=== PATIENT | male | born 1965 | race Caucasian/White ===

== ENCOUNTER 2021-03-06 10:30 | Inpatient (IN) | payer OTHER, SELFPAY ==
[2021-03-06] VITALS (10 sets, daily range): BP systolic 101–111; BP diastolic 59–72; PULSE 80–101; RESP 15–24; TEMP 36.8–38.3; O2SAT 89–94; BMI 25.1
--- NOTE | ~2021-03-06 | CT_ITS ---
EXAMINATION: CT ANGIOGRAM OF THE CHEST WITH AND WITHOUT CONTRAST (CT PULMONARY ANGIOGRAM FOR PE) CLINICAL INFORMATION: Reason for Exam shortness of breath, positive D-dimer rule out PE. COMPARISON: Chest x-ray of same day TECHNIQUE: Prior to contrast administration, noncontrast localization images were obtained. Subsequently, multidetector volumetric imaging was performed from the thoracic inlet to below the diaphragms following the administration of 71 mL Omnipaque 350 intravenous contrast. No contrast reaction reported Sagittal, coronal, and MIP oblique sagittal reformatted images were obtained on the CT workstation, uploaded to PACS, and reviewed. This CT examination was performed using dose optimization techniques as appropriate, variously including the following: *Automated exposure control *Adjustment of mA and/or kV according to patient size (this includes techniques or standardized protocols for targeted exams where dose is matched to indication/reason for exam; i.e. extremities or head) *Use of iterative reconstruction technique Total exam dose-length product 534 mGy-cm FINDINGS: QUALITY OF STUDY/CONTRAST BOLUS: Suboptimal. PULMONARY ARTERIES: No definite central or upper two third order branching acute pulmonary artery emboli seen. THORACIC AORTA: No aneurysm or dissection. LUNG: No suspicious lung nodules identified. There is diffuse groundglass opacity seen as well as some regions of airspace disease consistent with Covid/viral pneumonitis. Central airways are patent. Bronchial wall thickening is seen throughout. There appears to be some mild bronchiectasis present within the right lower lobe. PLEURA: No pleural effusion appreciated. No pneumothorax. MEDIASTINUM: Thyroid gland appears unremarkable. Heart normal size. No pericardial effusion. There is mediastinal and hilar lymphadenopathy, right greater than left. No evidence of septal bowing or right heart strain. CHEST WALL/AXILLA: No axillary or internal mammary lymphadenopathy. OSSEOUS STRUCTURES: No acute or suspicious osseous abnormality. UPPER ABDOMEN: Unremarkable. No reflux of contrast into the hepatic veins to suggest elevated right heart pressures. CT/CT angio chest PE protocol IMPRESSION: Diffuse interstitial airspace disease consistent with viral pneumonitis. No evidence of acute pulmonary artery embolus. No evidence of thoracic aortic aneurysm or dissection. VTE: negative
--- NOTE | ~2021-03-06 | XR_ITS ---
EXAMINATION: XR CHEST CLINICAL INFORMATION: Shortness of breath COMPARISON: None TECHNIQUE: AP portable view of the chest was obtained. FINDINGS: There are bilateral regions of ill-defined groundglass opacity. Heart normal size. No evidence of pulmonary edema. No pneumothorax or significant pleural effusion. XR/XR chest 1V IMPRESSION: Scattered bilateral regions of interstitial lung disease which may be infectious or inflammatory in nature.
--- NOTE | 2021-03-06 11:43 | ECG_ITS ---
Test Reason : SOB Blood Pressure : / mmHG Vent. Rate : 095 BPM Atrial Rate : 095 BPM P-R Int : 144 ms QRS Dur : 088 ms QT Int : 354 ms P-R-T Axes : 050 030 018 degrees QTc Int : 444 ms Normal sinus rhythm Normal ECG No previous ECGs available Referred By: Martin Marques Electronically Signed By:ANOOP COYLE MD
[2021-03-06 12:17] LABS: Basophils Percent Auto 0.2 % (0-2); Hematocrit 40.6 % (42.0-52.0); Hemoglobin 14.3 g/dl (14.0-18.0); Imm Gran Abs Auto 0.01 X10*3/uL (0.00-0.03); Imm Gran Pct Auto 0.2 % (0.0-0.4); Lymphocytes Absolute Auto 0.7 X10*3/uL (1.2-4.9); Lymphocytes Percent Auto 13.6 % (20-40); MANUAL DIFF FLAG SCAN; Mean Corpuscular HGB Conc 35.2 g/dl (31.0-36.0); Mean Corpuscular Hemoglobin 31.8 pg (27.0-33.0); Mean Corpuscular Volume 90.4 fL (80.0-98.0); Mean Platelet Volume 9.6 fL (9.4-12.4); Monocytes Absolute Auto 0.2 X10*3/uL (0.1-1.2); Monocytes Percent Auto 4.2 % (2-11); Neutrophils Absolute Auto 4.5 x10*3/uL (2.0-8.3); Neutrophils Percent Auto 81.8 % (45-73); Platelet Count 272 X10*3/uL (160-400); Red Blood Count 4.49 X10*6/uL (4.60-5.80); Red Cell Distribution Width 12.3 % (11.0-16.0); SCAN SMEAR FLAG 1; White Blood Count 5.5 X10*3/uL (4.8-10.8)
--- NOTE | 2021-03-06 12:28 | ED.SOB ---
HPI - SOB/Dyspnea General Chief Complaint: Dyspnea Stated Complaint: low oxygen levels Time Seen by Provider: 03/06/21 11:43 Source: patient Mode of arrival: ambulatory Limitations: no limitations History of Present Illness HPI Narrative: This is a 55-year-old male with no known medical history presenting to the emergency department with upper respiratory symptoms, Malaise, nausea and dyspnea on exertion since , patient tells me has been experiencing these symptoms intermittently since then. Also reports significant weight loss about 15-18 lb over the past few weeks. Tells me that night he is unable to sleep due to extreme chills. He also reports shortness of breath at rest, it is worse with ambulation however he feels as though it is present all the time. Patient tells me that his is currently sick with COVID-19. He is not vaccinated. He tells me he has been taking Advil for his symptoms, with little to no relief. He denies chest pain, pleuritic chest pain, vomiting, abdominal pain, headache, dizziness, weakness. patient is a former smoker however, he is not currently smoking at this time. MD elicited complaint: shortness of breath Onset (ago): day(s) (12) Timing: constant Severity: severe Exacerbating factors: movement Relieving factors: rest Associated symptoms: fever and diaphoresis Treatment prior to arrival: none Related Data Allergies Allergy/AdvReac Type Severity Reaction Status Date / Time No Known Allergies Allergy Verified 03/06/21 11:19 Review of Systems Review of Systems: Constitutional : + Weight loss, + Fever, + Chills, + Fatigue, + Malaise ENT/Mouth : No sore throat, No Rhinorrhea Eyes: No Eye Pain, No Swelling, No Redness Cardiovascular : No Chest Pain, + SOB, + Dyspnea on Exertion, No Orthopnea, No Edema, No Palpitations Respiratory : No Cough, No Sputum, No Wheezing Gastrointestinal : No Nausea, No Vomiting, No Diarrhea, No Constipation, No abdominal Pain, No Hematochezia, No Melena Genitourinary : No Dysuria, No Urinary Frequency, No Hematuria, Musculoskeletal : No joint pain, + Myalgias, No Joint Swelling Skin : No Skin Lesions, No rash Neuro : No Weakness, No Numbness, No Dizziness, No Headache Psych : No Anxiety/Panic, No Depression All other systems reviewed and are negative Yes all other systems are reviewed and are negative [facility] Past Medical History Attestation statement: The following information was validated with the patient. Source: old records reviewed and nursing notes reviewed Social History Social History Patient Tobacco Use Status: Former Tobacco user Smoked in Last 30 Days: No Use of substances other than those prescribed or required for medical reasons: No Advance Directives: No Physical Exam Vital Signs: Vital Signs: Last Vital Signs Temp 100.9 F H 03/06/21 15:56 Pulse 101 H 03/06/21 15:56 Resp 24 H 03/06/21 15:56 BP 103/59 L 03/06/21 15:56 Pulse Ox 89 L 03/06/21 16:03 BMI result Body Mass Index 25.1 VSS Appearance: Alert.? Oriented X3.? No acute distress.? Head: Normocephalic, atraumatic, no step-offs or deformities Eyes: Pupils equal, round and reactive to light.? ENT: Pharynx normal.? Neck: Normal inspection.? Neck supple.? CVS: Normal heart rate and rhythm.? Pulses normal.? Respiratory: No respiratory distress.? Breath sounds normal.? Abdomen: Soft and nontender.? Skin: Skin warm and dry.? Normal skin color.? Normal skin turgor.? Extremities: No lower extremity edema.? No calf ttp. 5/5 strength to bilateral upper and lower extremities Back: No midline tenderness, no C-spine tenderness, full range of motion, no CVA tenderness bilaterally Neuro: Oriented X 3.? No motor deficit.? No sensory deficit. Course Reevaluation(s) Reevaluation #1: O2 88% RA after ambulation. Complaining of SOB. Time: 15:44 Reevaluation #2: Patient now 88% resting in the stretcher, will put on 2L. Blood cultures and lactic will be ordered. Patient given tylenol he is now febrile. Infection suspected. Cultures and a lactic will be ordered at this time as well as atbx and fluids. Time: 16:35 Reevaluation #3: Dr. Castellon will admit patient Time: 16:36 MDM - SOB/Dyspnea MDM Narrative Medical decision making narrative: 1233 55 yo m no pmhx presents with COVID like sx X12 days, he also reports a/c malise, nausea, chills, and 15-18 lbs weight loos. Patient is not vaccinated. Physical examination benign, patient saturating 92% on room air. Will put patient on 2 L via nasal cannula. Plan at this time is to obtain basic labs, troponin, UA, chest x-ray, continuous cardiac monitoring. I will do an ambulatory O2 trial on this patient to ensure he did not saturate below 90%. Medical Records Attestation: I reviewed the patient's medical records. Lab Data Attestation: I reviewed the patient's lab results. Result diagrams: 03/06/21 12:04 03/06/21 12:04 Labs: Lab Results 03/06/21 03/06/21 03/06/21 Range/Units 12:04 12:04 12:04 WBC 5.5 (4.8-10.8) X10*3/uL RBC 4.49 L (4.60-5.80) X10*6/uL Hgb 14.3 (14.0-18.0) g/dl Hct 40.6 L (42.0-52.0) % MCV 90.4 (80.0-98.0) fL MCH 31.8 (27.0-33.0) pg MCHC 35.2 (31.0-36.0) g/dl RDW 12.3 (11.0-16.0) % Plt Count 272 (160-400) X10*3/uL MPV 9.6 (9.4-12.4) fL Immature Gran % (Auto) 0.2 (0.0-0.4) % Neut % (Auto) 81.8 H (45-73) % Lymph % (Auto) 13.6 L (20-40) % [place] % (Auto) 4.2 (2-11) % Eos % (Auto) 0.0 (0-4) % Baso % (Auto) 0.2 (0-2) % Lymph # (Auto) 0.7 L (1.2-4.9) X10*3/uL [place] # (Auto) 0.2 (0.1-1.2) X10*3/uL Eos # (Auto) 0.0 (0.0-0.4) X10*3/uL Baso # (Auto) 0.0 (0.0-0.2) X10*3/uL Abs Immat Gran (auto) 0.01 (0.00-0.03) X10*3/uL Absolute Neuts (auto) 4.5 (2.0-8.3) x10*3/uL Absolute Nucleated RBC 0.000 (0.0-0.012) X10*3/uL Nucleated RBC % (auto) 0.0 (0.0-0.2) /100WBC Smear Tech's Comments VERIFIED D-Dimer High Sensitivty NG/ML Sodium 134 L (135-145) mmol/L Potassium 3.7 (3.3-5.1) mmol/L Chloride 100 (96-108) mmol/L Carbon Dioxide 24 (22-29) mmol/L Anion Gap 14 (12-20) BUN 17 H (9-16) mg/dL Creatinine 1.13 (0.5-1.4) mg/dL Estim Creat Clear Calc 94.1 Estimated GFR > 60 Random Glucose 128 H (60-115) mg/dL Calcium 8.1 L (8.4-10.2) mg/dL Magnesium 2.2 (1.6-2.6) mg/dL Total Bilirubin 1.2 H (0.0-1.0) mg/dL AST 66 H (5-37) U/L ALT 85 H (0-40) U/L Alkaline Phosphatase 84 (39-117) U/L Troponin I High Sens 9.3 (<3.5-35.0) ng/L Total Protein 6.2 L (6.5-8.0) g/dL Albumin 3.6 (3.5-5.0) g/dL COVID-19 (FANY) (Negative) COVID-19 Clin Com 03/06/21 03/06/21 Range/Units 12:58 12:58 WBC (4.8-10.8) X10*3/uL RBC (4.60-5.80) X10*6/uL Hgb (14.0-18.0) g/dl Hct (42.0-52.0) % MCV (80.0-98.0) fL MCH (27.0-33.0) pg MCHC (31.0-36.0) g/dl RDW (11.0-16.0) % Plt Count (160-400) X10*3/uL MPV (9.4-12.4) fL Immature Gran % (Auto) (0.0-0.4) % Neut % (Auto) (45-73) % Lymph % (Auto) (20-40) % [place] % (Auto) (2-11) % Eos % (Auto) (0-4) % Baso % (Auto) (0-2) % Lymph # (Auto) (1.2-4.9) X10*3/uL [place] # (Auto) (0.1-1.2) X10*3/uL Eos # (Auto) (0.0-0.4) X10*3/uL Baso # (Auto) (0.0-0.2) X10*3/uL Abs Immat Gran (auto) (0.00-0.03) X10*3/uL Absolute Neuts (auto) (2.0-8.3) x10*3/uL Absolute Nucleated RBC (0.0-0.012) X10*3/uL Nucleated RBC % (auto) (0.0-0.2) /100WBC Smear Tech's Comments D-Dimer High Sensitivty 403 NG/ML Sodium (135-145) mmol/L Potassium (3.3-5.1) mmol/L Chloride (96-108) mmol/L Carbon Dioxide (22-29) mmol/L Anion Gap (12-20) BUN (9-16) mg/dL Creatinine (0.5-1.4) mg/dL Estim Creat Clear Calc Estimated GFR Random Glucose (60-115) mg/dL Calcium (8.4-10.2) mg/dL Magnesium (1.6-2.6) mg/dL Total Bilirubin (0.0-1.0) mg/dL AST (5-37) U/L ALT (0-40) U/L Alkaline Phosphatase (39-117) U/L Troponin I High Sens (<3.5-35.0) ng/L Total Protein (6.5-8.0) g/dL Albumin (3.5-5.0) g/dL COVID-19 (FANY) Positive A (Negative) COVID-19 Clin Com See Note Imaging Data Chest x-ray: Attestation: I personally reviewed and interpreted this imaging study as follows: Radiologist's impression: FINDINGS: There are bilateral regions of ill-defined groundglass opacity. Heart normal size. No evidence of pulmonary edema. No pneumothorax or significant pleural effusion. XR/XR chest 1V IMPRESSION: Scattered bilateral regions of interstitial lung disease which may be infectious or inflammatory in nature. ECG Data Attestation: I personally reviewed and interpreted this ECG as follows: ECG interpretation date: 03/06/21 ECG interpretation time: 12:41 Prior ECG tracings: not available for review Interpretation: Ventricular rate of 95, MA normal, QRS normal, QT/ QTC normal. EKG shows normal sinus rhythm, no ST elevations or inversions. No acute ischemia. No previous EKGs to compare with. Critical Care Time Critical Care Time Critical Care Time: No Discharge Plan Discharge Clinical Impression: COVID-19, Viral pneumonia Patient Disposition: Admitted As Inpatient
[2021-03-06 12:30] LABS: Alanine Aminotransferase 85 U/L (0-40); Albumin Level 3.6 g/dL (3.5-5.0); Alkaline Phosphatase 84 U/L (39-117); Anion Gap 14 (12-20); Aspartate Amino Transferase 66 U/L (5-37); Bilirubin Total 1.2 mg/dL (0.0-1.0); Blood Urea Nitrogen 17 mg/dL (9-16); Calcium 8.1 mg/dL (8.4-10.2); Carbon Dioxide 24 mmol/L (22-29); Chloride 100 mmol/L (96-108); Creatinine Clr Calc Pharmacy 94.1; Estimated Glomerular Filt Rate > 60; Glucose Random 128 mg/dL (60-115); Magnesium 2.2 mg/dL (1.6-2.6); Potassium 3.7 mmol/L (3.3-5.1); Sodium 134 mmol/L (135-145); Total Protein 6.2 g/dL (6.5-8.0)
[2021-03-06 12:37] LABS: Troponin-I High Sensitivity 9.3 ng/L (<3.5-35.0)
[2021-03-06 12:39] LABS: SLIDE REVIEW VERIFIED
[2021-03-06 13:12] LABS: D Dimer High Sensitivity 403 NG/ML
[2021-03-06 13:28] LABS: COVID-19 Test Positive (Negative)
[2021-03-06] MEDS: iohexoL 350 MG/ML 100 ML INFUS..BTL IV (14:04)
[2021-03-06] MEDS: 0.9 % Sodium Chloride 1,000 ML 999 ML IV (15:58)
[2021-03-06] MEDS: Acetaminophen 325 MG TABLET 650 MG PO (16:04)
--- NOTE | 2021-03-06 16:30 | P.HPHOSP_ITS ---
History of Present Illness Date of Service: 03/06/21 Chief Complaint: shortness of breath 55 year old male not vaccinated for covid here with sob and hypoxia. He has been having respiratory sumptoms since gabino and worse today. He is covid + and O2 sat has been as low as 87 on room. CXR shows covid pattern PNA, inflamatory markers are high. Given O2 with improvement. Review of Systems Review of Systems: Gen: no fever Resp: + sob, + cough CV: no chest, no SMITH, no leg edema GI: No n/v, no abd pain Neuro: No confusion Yes all other systems are reviewed and are negative PMFSH Pertinent family history: mother with lupus, heard disease run in family Social History Patient Tobacco Use Status: Former Tobacco user Smoked in Last 30 Days: No Use of substances other than those prescribed or required for medical reasons: No Advance Directives: No Meds Allergies Allergy/AdvReac Type Severity Reaction Status Date / Time No Known Allergies Allergy Verified 03/06/21 11:19 Active Medications: Current Medications Sodium Chloride (Ns) 1,000 mls @ 999 mls/hr IV .Q1H1M TRU Stop: 03/06/21 17:00 Last Admin: 03/06/21 15:58 Dose: 999 mls/hr Documented by: Physical Exam Vital Signs and Narrative: Vital Signs: Last Vital Signs Temp 100.9 F H 03/06/21 15:56 Pulse 101 H 03/06/21 15:56 Resp 24 H 03/06/21 15:56 BP 103/59 L 03/06/21 15:56 Pulse Ox 89 L 03/06/21 16:03 BMI result Body Mass Index 25.1 Const: Other: Constitutional: Alert, in no distress, Mental Status: Oriented to person, place and time. Eyes: normal scleara Respiratory: noirmal respiratory effort, no accessory muiscle use Cardiovascular: S1 S2 regular. No murmurs, rubs or gallops. Gastrointestinal: Abdomen soft, non-tender, non-distended. Normal bowel sounds.? Neurologic: Cranial nerves II-XII grossly intact. No focal neurological deficits. Moves all extremities spontaneously.? Skin: No rashes or lesions.? Musculoskeletal: No cyanosis or clubbing. Psychiatric: Normal mood and affect? Results Labs CBC and Chem 7: 03/06/21 12:04 03/06/21 12:04 Labs: Laboratory Results - last 24 hr 03/06/21 03/06/21 03/06/21 12:04 12:04 12:04 MCV 90.4 MCH 31.8 MCHC 35.2 RDW 12.3 Plt Count 272 MPV 9.6 Immature Gran % (Auto) 0.2 Neut % (Auto) 81.8 H Lymph % (Auto) 13.6 L [place] % (Auto) 4.2 Eos % (Auto) 0.0 Baso % (Auto) 0.2 Lymph # (Auto) 0.7 L [place] # (Auto) 0.2 Eos # (Auto) 0.0 Baso # (Auto) 0.0 Abs Immat Gran (auto) 0.01 Absolute Neuts (auto) 4.5 Absolute Nucleated RBC 0.000 Nucleated RBC % (auto) 0.0 Smear Tech's Comments VERIFIED D-Dimer High Sensitivty Anion Gap 14 Estim Creat Clear Calc 94.1 Estimated GFR > 60 Random Glucose 128 H Calcium 8.1 L Magnesium 2.2 Total Bilirubin 1.2 H AST 66 H ALT 85 H Alkaline Phosphatase 84 Troponin I High Sens 9.3 Total Protein 6.2 L Albumin 3.6 COVID-19 (FANY) COVID-19 Clin Com 03/06/21 03/06/21 12:58 12:58 MCV MCH MCHC RDW Plt Count MPV Immature Gran % (Auto) Neut % (Auto) Lymph % (Auto) [place] % (Auto) Eos % (Auto) Baso % (Auto) Lymph # (Auto) [place] # (Auto) Eos # (Auto) Baso # (Auto) Abs Immat Gran (auto) Absolute Neuts (auto) Absolute Nucleated RBC Nucleated RBC % (auto) Smear Tech's Comments D-Dimer High Sensitivty 403 Anion Gap Estim Creat Clear Calc Estimated GFR Random Glucose Calcium Magnesium Total Bilirubin AST ALT Alkaline Phosphatase Troponin I High Sens Total Protein Albumin COVID-19 (FANY) Positive A COVID-19 Clin Com See Note Imaging Radiologist's Impressions: Impressions Chest X-Ray 03/06/21 12:23 IMPRESSION: Scattered bilateral regions of interstitial lung disease which may be infectious or inflammatory in nature. Chest CTA 03/06/21 14:18 IMPRESSION: Diffuse interstitial airspace disease consistent with viral pneumonitis. No evidence of acute pulmonary artery embolus. No evidence of thoracic aortic aneurysm or dissection. VTE: negative Assessment and Plan (1) COVID-19: Status: Acute (2) Viral pneumonia: Status: Acute 55 year old male not vaccinated for covid here with sob and hypoxia. He has been having respiratory sumptoms since gabino and worse today. He is covid + and O2 sat has been as low as 87 on room. CXR shows covid pattern PNA. Acute hypoxic respiratory failure d/t covid PNA -Out of window for remdesevir since symptoms nearly 2 weeks -Dexamethasone -O2 -Zinc, Pepcid, Vit C--not well validated treatment options, but no potential for harm. Lovenox for DVT prophylaxis. Quality Stroke Does the patient have a stroke diagnosis?: No VTE Prior VTE?: No VTE Risk Level:: Medical - moderate - high VTE Device Contraindication: Treatment Not Indicated VTE Drug Contraindication: Treatment Not Indicated
[2021-03-06 16:39] LABS: Lactate Dehydrogenase 937 U/L (118-273)
[2021-03-06 17:03] LABS: Procalcitonin 0.45 ng/mL
[2021-03-06 17:27] LABS: Lactic Acid 1.2 mmol/L (0.5-2.0)
[2021-03-06] MEDS: dexAMETHasone sod phosphate 10 MG/ML VIAL IVPUSH (17:30)
[2021-03-06] MEDS: cefTRIAXone sodium 1 GM in 0.9 % Sodium Chloride 50 ML IV (17:30)
[2021-03-06] MEDS: Enoxaparin Sodium 40 MG/0.4 ML SYRINGE SUBCUT (17:30)
[2021-03-06 17:35] LABS: Troponin-I High Sensitivity 9.4 ng/L (<3.5-35.0)
[2021-03-06 17:58] LABS: Ferritin 8394 ng/mL (20-250)
[2021-03-06] MEDS: Azithromycin 500 MG in 0.9 % Sodium Chloride 250 ML 125 MG IV (18:03)
--- NOTE | 2021-03-06 18:27 | MHC.CM.PN ---
CM met with admitted patient with bed assignment pending. A&Ox3. No IMM necessary. No HCP. Education provided, pt declines at this time. No PCP. Negative medical hx. Positive Covid with symptoms since 02/22. Pt is employed. Lives with and 13 years old son. has been ill and tested positive for Covid today. Pt states son is not sick. Pt is Not vaccinated. D/C plan is home without services. Pt may need RT evaluation and home oxygen at discharge. Pt will arrange transportation home. CM to follow for d/c needs.
--- NOTE | 2021-03-06 19:44 | PC.NURSE ---
Pt resting on stretcher in NAD, breathing with ease on 3L NC. Pt aaox4, denies pain/discomfort, offers no complaints/concerns. Pt VSS, awaiting bed placement. Pt stretcher in lowest locked position, rail raised, call ramos within reach.
[2021-03-07] VITALS (10 sets, daily range): BP systolic 103–121; BP diastolic 59–79; PULSE 73–103; RESP 16–20; TEMP 36.4–37.2; O2SAT 90–98; BMI 26.1
--- NOTE | 2021-03-07 01:15 | PC.NURSE ---
Pt resting on stretcher in NAD, breathing with ease on NC, skin warm dry and normal in appearance for age and race. Pt offers no complaints of pain/discomfort. Pt reports I'm feeling a lot better than when I came in! Stretcher in lowest locked position, rails raised, call ramos within reach.
[2021-03-07 01:20] LABS: Appearance Urine CLEAR; Color Urine YELLOW; Glucose Urine UA NEG (NEG); Leukocyte Esterase Urine NEG (NEG); Nitrite Urine NEG (NEG); PH 6.5 (5.0-8.0); UACC Culture Trigger NO; Urine Blood NEG (NEG); Urine Ketones NEG (NEG); Urine Protein 1+ MG/DL (NEG-TRACE)
[2021-03-07 01:38] LABS: Amorphous Sediment Urine TRACE /LPF; Mucus Urine TRACE /LPF; RBC Urine 0 /HPF (0); Squamous Epithelial Cell Urine TRACE /LPF; WBC Urine 0 /HPF (0-4)
[2021-03-07] MEDS: dexAMETHasone sod phosphate 4 MG/ML VIAL 6 MG IVPUSH (09:01)
[2021-03-07] MEDS: 0.9 % Sodium Chloride Flush 3 ML SYRINGE IVFLUSH ×3 (09:01→21:15)
--- NOTE | 2021-03-07 12:54 | HO.PM.IMPN ---
Subjective Subjective Date of Service: 03/08/21 Interval History: f/u covid realted hypoxia, O2 requirement has gone up Review of Systems +fever sob Physical Exam Vital Signs: Vital Signs: Last Vital Signs Temp 98.9 F 03/07/21 11:13 Pulse 93 03/07/21 11:13 Resp 20 03/07/21 11:13 BP 120/73 03/07/21 11:13 Pulse Ox 92 03/07/21 11:13 BMI result Body Mass Index 26.1 Const: Other: General: AO X 3, no acute distress Resp: normal lung expansion, no accessroy muscle use CVS: S1,S2,RRR GI: +BS, NT, no distention Skin: No rash Neuro: motor grossly intact Psych: appropriate affect Objective Data Active Medications Acetaminophen (Acetaminophen 325 Mg Tablet) 650 mg PO Q6H PRN PRN Reason: Pain, Mild (Pain Scale 1-3) Dexamethasone Sodium Phosphate (Dexamethasone Sod Phosphate 4 Mg/Ml Vial) 6 mg IVPUSH DAILY [facility] Last Admin: 03/07/21 09:01 Dose: 6 mg Documented by: ANTIONE Enoxaparin Sodium (Enoxaparin Sodium 40 Mg/0.4 Ml Syringe) 40 mg SUBCUT Q24H [facility] Last Admin: 03/06/21 17:30 Dose: 40 mg Documented by: CAIO Melatonin (Melatonin 3 Mg Tablet) 6 mg PO BEDTIME PRN PRN Reason: Insomnia Pharmacy Consult (Consult Rx Perform Med Rec) 1 each MISCELLANE ONCE PRN PRN Reason: Consult order Sodium Chloride (0.9 % Sodium Chloride Flush 3 Ml Syringe) 3 ml IVFLUSH QSHIFT [facility] Last Admin: 03/07/21 09:01 Dose: 3 ml Documented by: ANTIONE Labs CBC & Chem 7: 03/06/21 12:04 03/06/21 12:04 Labs: Laboratory Results - last 24 hr 03/06/21 03/06/21 03/06/21 12:04 12:04 12:58 D-Dimer High Sensitivty Lactic Acid Ferritin 8394 H Lactate Dehydrogenase 937 H Troponin I High Sens Procalcitonin 0.45 Urine Color Urine Appearance Urine pH Ur Specific [place] Urine Protein Urine Glucose (UA) Urine Ketones Urine Blood Urine Nitrite Ur Leukocyte Esterase Urine RBC Urine WBC Ur Squamous Epith Cells Amorphous Sediment Urine Bacteria Urine Mucus COVID-19 (FANY) Positive A COVID-19 Clin Com See Note 03/06/21 03/06/21 03/06/21 12:58 17:06 17:06 D-Dimer High Sensitivty 403 Lactic Acid 1.2 Ferritin Lactate Dehydrogenase Troponin I High Sens 9.4 Procalcitonin Urine Color Urine Appearance Urine pH Ur Specific [place] Urine Protein Urine Glucose (UA) Urine Ketones Urine Blood Urine Nitrite Ur Leukocyte Esterase Urine RBC Urine WBC Ur Squamous Epith Cells Amorphous [place] Urine Bacteria Urine Mucus COVID-19 (FANY) COVID-19 Clin Com 03/07/21 01:06 D-Dimer High Sensitivty Lactic Acid Ferritin Lactate Dehydrogenase Troponin I High Sens Procalcitonin Urine Color YELLOW Urine Appearance CLEAR Urine pH 6.5 Ur Specific [place] 1.010 Urine Protein 1+ H Urine Glucose (UA) NEG Urine Ketones NEG Urine Blood NEG Urine Nitrite NEG Ur Leukocyte Esterase NEG Urine RBC 0 Urine WBC 0 Ur Squamous Epith Cells TRACE Amorphous Sediment TRACE Urine Bacteria NONE Urine Mucus TRACE COVID-19 (FANY) COVID-19 Clin Com Assessment and Plan (1) Acute hypoxemic respiratory failure due to COVID-19: Status: Acute Assessment and Plan: \55 year old male not vaccinated for covid here with sob and hypoxia. He has been having respiratory sumptoms since gabino and worse today. He is covid + and O2 sat has been as low as 87 on room. CXR shows covid pattern PNA. Acute hypoxic respiratory failure d/t covid PNA -Out of window for remdesevir since symptoms nearly 2 weeks -Dexamethasone 6 daily, D2/10 -O2 and adjust to sat of 90 or better -Zinc, Pepcid, Vit C--not well validated treatment options, but no potential for harm. Lovenox for DVT prophylaxis. Quality Stroke Does the patient have a stroke diagnosis?: No VTE Prior VTE?: No VTE Risk Level:: Medical - moderate - high VTE Device Contraindication: Treatment Not Indicated VTE Drug Contraindication: Treatment Not Indicated
[2021-03-07] MEDS: Ascorbic Acid 250 MG TABLET PO (13:25)
[2021-03-07] MEDS: Zinc Sulfate 220 MG CAPSULE PO (13:25)
[2021-03-07] MEDS: Famotidine 20 MG TABLET PO ×2 (13:25→21:07)
[2021-03-07] MEDS: Enoxaparin Sodium 40 MG/0.4 ML SYRINGE SUBCUT (18:24)
[2021-03-08 03:18] VITALS: BP 107/67; PULSE 94; RESP 19; TEMP 37.9; O2SAT 90
[2021-03-08 08:00] VITALS: BP 114/72; PULSE 107; RESP 16; TEMP 35.6; O2SAT 86
[2021-03-08] MEDS: Ascorbic Acid 250 MG TABLET PO (08:37)
[2021-03-08] MEDS: Famotidine 20 MG TABLET PO ×2 (08:37→19:49)
[2021-03-08] MEDS: dexAMETHasone sod phosphate 4 MG/ML VIAL 6 MG IVPUSH (08:37)
[2021-03-08] MEDS: Zinc Sulfate 220 MG CAPSULE PO (08:37)
[2021-03-08] MEDS: 0.9 % Sodium Chloride Flush 3 ML SYRINGE IVFLUSH ×3 (08:37→19:56)
--- NOTE | 2021-03-08 09:51 | HO.PM.IMPN ---
Subjective Subjective Date of Service: 03/09/21 Interval History: f/u covid realted hypoxia, altought he feels well, oxygen level is much level as low as 86 on 6 liters Review of Systems +fever sob +cough Physical Exam Vital Signs: Vital Signs: Last Vital Signs Temp 96.1 F L 03/08/21 08:00 Pulse 107 H 03/08/21 08:00 Resp 16 03/08/21 08:00 BP 114/72 03/08/21 08:00 Pulse Ox 86 L 03/08/21 08:00 BMI result Body Mass Index 26.1 Const: Other: General: AO X 3, no acute distress Resp: normal lung expansion, no accessroy muscle use CVS: S1,S2,RRR GI: +BS, NT, no distention Skin: No rash Neuro: motor grossly intact Psych: appropriate affect Objective Data Active Medications Acetaminophen (Acetaminophen 325 Mg Tablet) 650 mg PO Q6H PRN PRN Reason: Pain, Mild (Pain Scale 1-3) Ascorbic Acid (Ascorbic Acid 250 Mg Tablet) 250 mg PO DAILY [facility] Last Admin: 03/08/21 08:37 Dose: 250 mg Documented by: AGUSTÍN Dexamethasone Sodium Phosphate (Dexamethasone Sod Phosphate 4 Mg/Ml Vial) 6 mg IVPUSH DAILY [facility] Last Admin: 03/08/21 08:37 Dose: 6 mg Documented by: AGUSTÍN Enoxaparin Sodium (Enoxaparin Sodium 40 Mg/0.4 Ml Syringe) 40 mg SUBCUT Q24H [facility] Last Admin: 03/07/21 18:24 Dose: 40 mg Documented by: ALEYDA Famotidine (Famotidine 20 Mg Tablet) 20 mg PO BID [facility] Last Admin: 03/08/21 08:37 Dose: 20 mg Documented by: AGUSTÍN Melatonin (Melatonin 3 Mg Tablet) 6 mg PO BEDTIME PRN PRN Reason: Insomnia Pharmacy Consult (Consult Rx Perform Med Rec) 1 each MISCELLANE ONCE PRN PRN Reason: Consult order Sodium Chloride (0.9 % Sodium Chloride Flush 3 Ml Syringe) 3 ml IVFLUSH QSHIFT [facility] Last Admin: 03/08/21 08:37 Dose: 3 ml Documented by: AGUSTÍN Zinc Sulfate (Zinc Sulfate 220 Mg Capsule) 220 mg PO DAILY [facility] Last Admin: 03/08/21 08:37 Dose: 220 mg Documented by: AGUSTÍN Labs CBC & Chem 7: 03/06/21 12:04 03/06/21 12:04 Microbiology Microbiology Results: Microbiology 03/06/21 17:06 Blood Culture - Preliminary Blood - Venous No growth after 24 hours. 03/06/21 17:06 Blood Culture - Preliminary Blood - Venous No growth after 24 hours. Assessment and Plan (1) Acute hypoxemic respiratory failure due to COVID-19: Status: Acute (2) COVID-19: Status: Acute (3) Viral pneumonia: Status: Acute Assessment and Plan: \55 year old male not vaccinated for covid here with sob and hypoxia. He has been having respiratory sumptoms since gabino and worse today. He is covid + and O2 sat has been as low as 87 on room. CXR shows covid pattern PNA. Acute hypoxic respiratory failure d/t covid PNA, persistent hypoxia -Out of window for remdesevir since symptoms nearly 2 weeks -Dexamethasone 6 daily, D3/10 -O2 and adjust to sat of 90 or better -Zinc, Pepcid, Vit C--not well validated treatment options, but no potential for harm. -advises against leaving the hospital at this time Lovenox for DVT prophylaxis. Quality Stroke Does the patient have a stroke diagnosis?: No VTE Prior VTE?: No VTE Risk Level:: Medical - moderate - high VTE Device Contraindication: Treatment Not Indicated VTE Drug Contraindication: Treatment Not Indicated
[2021-03-08 12:00] VITALS: BP 111/81; PULSE 78; RESP 18; TEMP 36.3; O2SAT 92
--- NOTE | 2021-03-08 13:26 | MHC.CM.PN ---
Per ROUNDS discussion, Patient is not yet medically cleared for dc (IV Decadron, 6L O2); Home is the goal for dc and CM will follow for possible need to adjust the dc plan.
[2021-03-08 15:22] VITALS: BP 104/68; PULSE 80; RESP 18; TEMP 36.6; O2SAT 90
[2021-03-08] MEDS: Enoxaparin Sodium 40 MG/0.4 ML SYRINGE SUBCUT (17:47)
[2021-03-08 19:08] VITALS: BP 106/60; PULSE 72; RESP 18; TEMP 36.6; O2SAT 93
[2021-03-08 23:21] VITALS: BP 101/66; PULSE 76; RESP 18; TEMP 36.1; O2SAT 90
[2021-03-09 03:50] VITALS: BP 101/65; PULSE 82; RESP 18; TEMP 37.1; O2SAT 90
[2021-03-09 08:00] VITALS: BP 140/69; PULSE 101; RESP 18; TEMP 36.1; O2SAT 92
[2021-03-09] MEDS: Ascorbic Acid 250 MG TABLET PO (09:02)
[2021-03-09] MEDS: 0.9 % Sodium Chloride Flush 3 ML SYRINGE IVFLUSH ×3 (09:02→20:37)
[2021-03-09] MEDS: dexAMETHasone sod phosphate 4 MG/ML VIAL 6 MG IVPUSH (09:02)
[2021-03-09] MEDS: Zinc Sulfate 220 MG CAPSULE PO (09:02)
[2021-03-09] MEDS: Famotidine 20 MG TABLET PO (09:02)
--- NOTE | 2021-03-09 10:56 | P.PNIM_ITS ---
Subjective Subjective Date of Service: 03/09/21 Interval History: f/u covid realted hypoxia, altought he feels well, oxygen level better at 4 liters, generally feels well and would like to go home if possible Review of Systems +fever sob +cough Constitutional General: AO X 3, no acute distress Resp: normal respiratory pattern and effort CVS: S1,S2,RRR GI: +BS, NT, no distention Skin: No rash Neuro: motor grossly intact Psych: appropriate affect Physical Exam Vital Signs: Vital Signs: Last Vital Signs Temp 97.0 F 03/09/21 08:00 Pulse 101 H 03/09/21 08:00 Resp 18 03/09/21 08:00 BP 140/69 H 03/09/21 08:00 Pulse Ox 92 03/09/21 08:00 BMI result Body Mass Index 26.1 Const: Other: General: AO X 3, no acute distress Resp: normal lung expansion, no accessroy muscle use CVS: S1,S2,RRR GI: +BS, NT, no distention Skin: No rash Neuro: motor grossly intact Psych: appropriate affect Objective Data Active Medications Acetaminophen (Acetaminophen 325 Mg Tablet) 650 mg PO Q6H PRN PRN Reason: Pain, Mild (Pain Scale 1-3) Ascorbic Acid (Ascorbic Acid 250 Mg Tablet) 250 mg PO DAILY [facility] Last Admin: 03/09/21 09:02 Dose: 250 mg Documented by: DUNG Dexamethasone Sodium Phosphate (Dexamethasone Sod Phosphate 4 Mg/Ml Vial) 6 mg IVPUSH DAILY [facility] Last Admin: 03/09/21 09:02 Dose: 6 mg Documented by: DUNG Enoxaparin Sodium (Enoxaparin Sodium 40 Mg/0.4 Ml Syringe) 40 mg SUBCUT Q24H [facility] Last Admin: 03/08/21 17:47 Dose: 40 mg Documented by: JAIMIE Famotidine (Famotidine 20 Mg Tablet) 20 mg PO BID [facility] Last Admin: 03/09/21 09:02 Dose: 20 mg Documented by: DUNG Melatonin (Melatonin 3 Mg Tablet) 6 mg PO BEDTIME PRN PRN Reason: Insomnia Pharmacy Consult (Consult Rx Perform Med Rec) 1 each MISCELLANE ONCE PRN PRN Reason: Consult order Sodium Chloride (0.9 % Sodium Chloride Flush 3 Ml Syringe) 3 ml IVFLUSH QSHIFT [facility] Last Admin: 03/09/21 09:02 Dose: 3 ml Documented by: DUNG Zinc Sulfate (Zinc Sulfate 220 Mg Capsule) 220 mg PO DAILY [facility] Last Admin: 03/09/21 09:02 Dose: 220 mg Documented by: DUNG Labs CBC & Chem 7: 03/06/21 12:04 03/06/21 12:04 Microbiology Microbiology Results: Microbiology 03/06/21 17:06 Blood Culture - Preliminary Blood - Venous No growth after 48 hours. 03/06/21 17:06 Blood Culture - Preliminary Blood - Venous No growth after 48 hours. Assessment and Plan (1) Acute hypoxemic respiratory failure due to COVID-19: Status: Acute (2) COVID-19: Status: Acute (3) Viral pneumonia: Status: Acute Assessment and Plan: 55 year old male not vaccinated for covid here with sob and hypoxia. He has been having respiratory sumptoms since gabino and worse today. He is covid + and O2 sat has been as low as 87 on room. CXR shows covid pattern PNA. Acute hypoxic respiratory failure d/t covid PNA, persistent hypoxia -Out of window for remdesevir since symptoms nearly 2 weeks -Dexamethasone 6 daily, D4/10 -O2 and adjust to sat of 90 or better -Zinc, Pepcid, Vit C--not well validated treatment options, but no potential for harm. -advises against leaving the hospital at this time Home O2 eval for possible DC with home oxygen Lovenox for DVT prophylaxis. Quality Stroke Does the patient have a stroke diagnosis?: No VTE Prior VTE?: No VTE Risk Level:: Medical - moderate - high VTE Device Contraindication: Treatment Not Indicated VTE Drug Contraindication: Treatment Not Indicated
[2021-03-09 11:23] VITALS: BP 112/75; PULSE 86; RESP 18; TEMP 36.4; O2SAT 94
[2021-03-09 15:09] VITALS: BP 106/71; PULSE 76; RESP 20; TEMP 35.9; O2SAT 90
[2021-03-09] MEDS: Enoxaparin Sodium 40 MG/0.4 ML SYRINGE SUBCUT (16:50)
[2021-03-09 19:11] VITALS: BP 101/61; PULSE 81; RESP 20; TEMP 36.4; O2SAT 96
[2021-03-09 23:26] VITALS: BP 116/66; PULSE 80; RESP 20; TEMP 36.2; O2SAT 99
[2021-03-10 03:07] VITALS: BP 100/68; PULSE 78; RESP 20; TEMP 36.3; O2SAT 95
[2021-03-10 07:46] VITALS: BP 103/63; PULSE 80; RESP 17; TEMP 36.6; O2SAT 90
[2021-03-10] MEDS: dexAMETHasone sod phosphate 4 MG/ML VIAL 6 MG IVPUSH (09:06)
[2021-03-10] MEDS: 0.9 % Sodium Chloride Flush 3 ML SYRINGE IVFLUSH ×2 (09:06→17:57)
[2021-03-10] MEDS: Famotidine 20 MG TABLET PO ×2 (09:07→21:33)
[2021-03-10] MEDS: Ascorbic Acid 250 MG TABLET PO (09:07)
[2021-03-10] MEDS: Zinc Sulfate 220 MG CAPSULE PO (09:07)
--- NOTE | 2021-03-10 09:59 | P.PNIM_ITS ---
Subjective Subjective Date of Service: 03/10/21 Interval History: f/u covid realted hypoxia, altought he feels well, oxygen level better at 4 liters, doesn't feel as well today, was sating well overnight but this morning barely sating 90on 3 liters Review of Systems +fever sob +cough Physical Exam Vital Signs: Vital Signs: Last Vital Signs Temp 97.8 F 03/10/21 07:46 Pulse 80 03/10/21 07:46 Resp 17 03/10/21 07:46 BP 103/63 03/10/21 07:46 Pulse Ox 90 L 03/10/21 07:46 BMI result Body Mass Index 26.1 Const: Other: General: AO X 3, no acute distress Resp: normal lung expansion, no accessroy muscle use CVS: S1,S2,RRR GI: +BS, NT, no distention Skin: No rash Neuro: motor grossly intact Psych: appropriate affect Objective Data Active Medications Acetaminophen (Acetaminophen 325 Mg Tablet) 650 mg PO Q6H PRN PRN Reason: Pain, Mild (Pain Scale 1-3) Ascorbic Acid (Ascorbic Acid 250 Mg Tablet) 250 mg PO DAILY [facility] Last Admin: 03/10/21 09:07 Dose: 250 mg Documented by: NU Dexamethasone Sodium Phosphate (Dexamethasone Sod Phosphate 4 Mg/Ml Vial) 6 mg IVPUSH DAILY [facility] Last Admin: 03/10/21 09:06 Dose: 6 mg Documented by: NU Enoxaparin Sodium (Enoxaparin Sodium 40 Mg/0.4 Ml Syringe) 40 mg SUBCUT Q24H [facility] Last Admin: 03/09/21 16:50 Dose: 40 mg Documented by: DUNG Famotidine (Famotidine 20 Mg Tablet) 20 mg PO BID [facility] Last Admin: 03/10/21 09:07 Dose: 20 mg Documented by: NU Melatonin (Melatonin 3 Mg Tablet) 6 mg PO BEDTIME PRN PRN Reason: Insomnia Pharmacy Consult (Consult Rx Perform Med Rec) 1 each MISCELLANE ONCE PRN PRN Reason: Consult order Sodium Chloride (0.9 % Sodium Chloride Flush 3 Ml Syringe) 3 ml IVFLUSH QSHIFT [facility] Last Admin: 03/10/21 09:06 Dose: 3 ml Documented by: NU Zinc Sulfate (Zinc Sulfate 220 Mg Capsule) 220 mg PO DAILY [facility] Last Admin: 03/10/21 09:07 Dose: 220 mg Documented by: NU Labs CBC & Chem 7: 03/06/21 12:04 03/06/21 12:04 Assessment and Plan (1) Acute hypoxemic respiratory failure due to COVID-19: Status: Acute Assessment and Plan: 55 year old male not vaccinated for covid here with sob and hypoxia. He has been having respiratory sumptoms since gabino and worse today. He is covid + and O2 sat has been as low as 87 on room. CXR shows covid pattern PNA. Acute hypoxic respiratory failure d/t covid PNA, persistent hypoxia -Out of window for remdesevir since symptoms nearly 2 weeks -Dexamethasone 6 daily, D5/10 -O2 and adjust to sat of 90 or better -Zinc, Pepcid, Vit C--not well validated treatment options, but no potential for harm. -advises against leaving the hospital at this time Home O2 eval for possible DC with home oxygen Lovenox for DVT prophylaxis. Quality Stroke Does the patient have a stroke diagnosis?: No VTE Prior VTE?: No VTE Risk Level:: Medical - moderate - high VTE Device Contraindication: Treatment Not Indicated VTE Drug Contraindication: Treatment Not Indicated
[2021-03-10 11:15] VITALS: BP 128/79; PULSE 93; RESP 16; TEMP 36.4; O2SAT 92
[2021-03-10 15:20] VITALS: BP 119/66; PULSE 79; RESP 20; TEMP 36.3; O2SAT 94
[2021-03-10] MEDS: Enoxaparin Sodium 40 MG/0.4 ML SYRINGE SUBCUT (17:57)
[2021-03-10 19:15] VITALS: PULSE 75; RESP 20; TEMP 36.7; O2SAT 91
[2021-03-10 23:19] VITALS: BP 110/67; PULSE 80; RESP 20; TEMP 36.7; O2SAT 96
[2021-03-11] MEDS: 0.9 % Sodium Chloride Flush 3 ML SYRINGE IVFLUSH ×2 (00:49→09:11)
[2021-03-11 04:00] VITALS: BP 110/67; PULSE 70; RESP 20; TEMP 35.9; O2SAT 94
[2021-03-11 08:00] VITALS: BP 111/74; PULSE 94; RESP 20; TEMP 36.3; O2SAT 94
[2021-03-11 09:09] VITALS: PULSE 106; PULSE 107; O2SAT 93; O2SAT 94
[2021-03-11] MEDS: Zinc Sulfate 220 MG CAPSULE PO (09:11)
[2021-03-11] MEDS: Famotidine 20 MG TABLET PO (09:11)
[2021-03-11] MEDS: dexAMETHasone sod phosphate 4 MG/ML VIAL 6 MG IVPUSH (09:11)
[2021-03-11] MEDS: Ascorbic Acid 250 MG TABLET PO (09:11)
[2021-03-11 11:20] VITALS: BP 120/76; PULSE 89; RESP 20; TEMP 36.5; O2SAT 93
--- NOTE | 2021-03-11 11:37 | P.DS_ITS ---
DS: Providers Provider Date of Service: 03/11/21 Date of admission: 03/06/21 16:40 Primary care physician: Unknown Physician DS: Diagnosis Discharge Diagnosis (1) Acute hypoxemic respiratory failure due to COVID-19: Status: Resolved DS: Summary Hospital Course Hospital Course: Chief Complaint: shortness of breath 55 year old male not vaccinated for covid here with sob and hypoxia. He has been having respiratory sumptoms since gabino and worse today. He is covid + and O2 sat has been as low as 87 on room. CXR shows covid pattern PNA, inflamatory markers are high. Given O2 with improvement.? hospital couse: Patient was admitted for management of hypoxia and needed O2, he was out of window for remdesevir due to onset of symptoms. He was treated with IV steroid and oxygen by nasal canula. Overall doing better but required some oxygen especially with exertion and therefore will be sent home with oxygen and will complete 10 day course of 6 mg daily of dexamehtasone. He is encouraged to get vaccine and to follow up with PCP Time Spent with Patient Time attestation: Total time spent providing and/or coordinating discharge services: Discharge coordination time: Greater than 30 minutes Quality: Stroke Does the patient have a stroke diagnosis?: No Physical Exam Verdana 4l Vital Signs: Verdana 4d Verdana 4d Vital Signs: Verdana 4d Verdana 4Bd Last Vital Signs Verdana 4d [employer] Erector New 4d [employer] Erector New 4d Temp 97.7 F 03/11/21 11:20 Structural Iron Erector New 4d Pulse 89 03/11/21 11:20 Structural Iron Erector New 4d Resp 20 03/11/21 11:20 BP 120/76 03/11/21 11:20 Pulse Ox 93 03/11/21 11:20 BMI result Body Mass Index 26.1 DS: Data Data Completed and Pending Labs on day of discharge: Preliminary micro results at discharge 03/06/21 17:06 Blood Culture - Preliminary Blood - Venous No growth after 48 hours. 03/06/21 17:06 Blood Culture - Preliminary Blood - Venous No growth after 48 hours. Discharge Plan Discharge Anticipated Discharge Date/Time: 03/11/21 11:25 Patient Disposition: Home, Self-Care Discharge Diagnosis: Acute hypoxic respiratory failure due to covid Referrals: Physician,Unknown J [Primary Care Provider] - 1 Week Discharge Medications: New dexamethasone [Decadron] 6 mg tablet 6 mg PO DAILY Qty: 4 0RF Discharge Orders: Discharge Order (Routine); Ordered 03/11/21 Ordered By: Flex Hernandez Diet: advance to usual diet Activity on Discharge: As tolerated Stand Alone Forms: Patient Portal Discharge page Care Plan Goals: Full recovery from covid and no longer oxygen depedent Health Concerns: covid pneumonia Plan of Treatment: Take Dexamethasone as directed Use oxygen as directed Call 911 or return to the ED if you feel your breathing is getting worse. I suggest getting oxygen monitoring device at [facility] or [facility] to check your oxygen at home and the goal is for oxygen to stay above 90 Consider getting the vaccine in 2 weeks Follow up with your Doctor in 1 week, call for appointment Follow CDC isolation guideline and mask policy guidelines Assessment: As above Discharge Date/Time: 03/11/21 14:06
--- NOTE | 2021-03-11 11:45 | MHC.CM.PN ---
Patient has been medically cleared for dc to home today, no services.
== END 2021-03-11 14:06 | disposition home or self-care (01) | DRG 177 ==
LOC: HO.ED 15:54 → HO.EDOVER 16:54 → HO.IMC 03-07 08:45
PROVIDERS: Physician Assistant; Admitting Provider Internal Medicine; Emergency Provider Emergency Medicine; Visit Provider Internal Medicine
DX: U07.1 COVID-19 (principal); J12.82 Pneumonia due to coronavirus disease 2019; J96.01 Acute respiratory failure with hypoxia; Z87.891 Personal history of nicotine dependence
CPT/HCPCS: 36415; 71045; 71275; 80053; 81001; 82728; 83605; 83615; 83735; 84145; 84484; 85025; 85379; 87040; 87635; 93005; 96361; 96365; 96367; 96375; 99285; J0456; J0696; J1100; J1650; Q9967

== ENCOUNTER 2023-05-29 10:37 | Emergency (ER) | payer OTHER, SELFPAY ==
--- NOTE | ~2023-05-29 | CT_ITS ---
EXAMINATION: CT ANGIOGRAM OF THE CHEST WITH AND WITHOUT CONTRAST (CT PULMONARY ANGIOGRAM FOR PE) CLINICAL INFORMATION: Reason for Exam shortness of breath COMPARISON: CT angiogram chest 03/06/2021 TECHNIQUE: Prior to contrast administration, noncontrast localization images were obtained. Subsequently, multidetector volumetric imaging was performed from the thoracic inlet to below the diaphragms following the administration of 65 mL Omnipaque 350 intravenous contrast. No contrast reaction reported Sagittal, coronal, and MIP oblique sagittal reformatted images were obtained on the CT workstation, uploaded to PACS, and reviewed. This CT examination was performed using dose optimization techniques as appropriate, variously including the following: *Automated exposure control *Adjustment of mA and/or kV according to patient size (this includes techniques or standardized protocols for targeted exams where dose is matched to indication/reason for exam; i.e. extremities or head) *Use of iterative reconstruction technique Total exam dose-length product 325 mGy-cm FINDINGS: QUALITY OF STUDY/CONTRAST BOLUS: Satisfactory. PULMONARY ARTERIES: No pulmonary emboli. THORACIC AORTA: No aneurysm. LUNG: Mild emphysematous changes are present along with bronchial thickening. No focal consolidation, worrisome nodules or masses. Previously seen extensive groundglass infiltrates have cleared since the prior study. Calcified granuloma is present in the left upper lobe. PLEURA: No pleural effusion or pneumothorax. MEDIASTINUM: Normal heart size. No pericardial effusion. No hilar or mediastinal lymphadenopathy. No evidence of septal bowing or right heart strain. CORONARY ARTERY CALCIFICATION: None visualized on this study. CHEST WALL/AXILLA: No axillary or internal mammary lymphadenopathy. OSSEOUS STRUCTURES: No acute or suspicious osseous abnormality. UPPER ABDOMEN: Spleen is enlarged at 13 cm. No reflux of contrast into the hepatic veins to suggest elevated right heart pressures. CT/CT angio chest PE protocol IMPRESSION: 1. No evidence of pulmonary emboli. 2. Mild emphysema and bronchial thickening. 3. Mild splenomegaly. VTE: negative.
--- NOTE | ~2023-05-29 | US_ITS ---
EXAMINATION: US VENOUS ULTRASOUND WITH DOPPLER LOWER EXTREMITY, BILATERAL CLINICAL INFORMATION: Pain. COMPARISON: None available. TECHNIQUE: Ultrasound of the deep veins is performed from the hip to the calf with compression sonography and color and pulse Doppler assessment. Spectral analysis with color-flow imaging is performed. FINDINGS: RIGHT: There is normal venous compression and respiratory variation and augmented flow. The visualized common femoral vein, superficial femoral vein, profunda femoral vein, popliteal vein, and the trifurcation region shows no evidence of deep venous thrombosis. There is no significant popliteal fossa cyst. LEFT: There is normal venous compression and respiratory variation and augmented flow. The visualized common femoral vein, superficial femoral vein, profunda femoral vein, popliteal vein, and the trifurcation region shows no evidence of deep venous thrombosis. There is no significant popliteal fossa cyst. If the patient's symptoms persist, followup ultrasound in 5 days 7 days might be of value to exclude proximal propagation from a non-visualized calf vein. US/US venous duplex LE BI IMPRESSION: No DVT demonstrated in the bilateral lower extremities.
--- NOTE | ~2023-05-29 | XR_ITS ---
EXAMINATION: XR CHEST CLINICAL INFORMATION: Shortness of breath COMPARISON: Chest radiograph from 03/06/2021 TECHNIQUE: 2 views of the chest were obtained. FINDINGS: Slight elevation the right hemidiaphragm. No pneumothorax. Trachea is midline. Cardiac mediastinal silhouette is not enlarged. No large pleural effusion. Osseous structures are intact. Soft tissues are unremarkable. XR/XR chest 2V IMPRESSION: No acute cardiopulmonary process.
[2023-05-29 11:09] VITALS: BP 127/89; PULSE 74; RESP 16; TEMP 36.6; O2SAT 96
--- NOTE | 2023-05-29 11:12 | ED.SOB ---
HPI - SOB/Dyspnea General Chief Complaint: General Medical Stated Complaint: trouble breathing ? sent by Leona Mcknight Time Seen by Provider: 05/29/23 16:07 Source: patient, RN notes reviewed and old records reviewed Mode of arrival: ambulatory Limitations: no limitations History of Present Illness HPI Narrative: 58-year-old male who denies any past medical history presents for evaluation of shortness of breath and intermittent dizziness Patient reports that his symptoms started about 2 years ago when he was diagnosed with COVID-19 He reports intermittent shortness of breath ever since Patient reports his symptoms seem to be worse over the last month and a half He reports increasing shortness of breath with exertion. Reports that he had to quit his job because ?I could not walk up the 2 flights of stairs to get to the equipment anymore. ? He reports he has intermittent dizziness that appears worse with bending over or standing up He denies any chest pain He denies any history of DVT or PE. He has intermittent leg swelling, left greater than right Denies any fevers, chills, cough Related Data Previous Rx's Medication Instructions Recorded dexamethasone 6 mg tablet 6 mg PO DAILY #4 tabs 03/11/21 (Decadron) Allergies Allergy/AdvReac Type Severity Reaction Status Date / Time No Known Allergies Allergy Verified 03/06/21 11:19 Review of Systems Constitutional: Constitutional: Denies body ache(s), Denies chills and Denies fever(s) Eyes: Eyes: Denies blurry vision ENT: Reports dizziness and Denies sore throat Cardiovascular: Cardiovascular: Denies chest pain, Denies chest pain with activity, Denies leg ulcers, Reports leg edema and Reports dyspnea on exertion Respiratory: Respiratory: Denies cough and Reports dyspnea on exertion Gastrointestinal: Gastrointestinal: Denies abdominal pain, Denies nausea and Denies vomiting Musculoskeletal: Musculoskeletal: Denies back pain Integumentary/Breasts: Skin/Breast: Denies rash Neurologic: Reports dizziness PMFSH Social History Social History Household Members: Spouse and Children Housing: House Do you presently have visiting nurse or other home services: No Patient Tobacco Use Status: Former Tobacco user Smoked in Last 30 Days: No Use of substances other than those prescribed or required for medical reasons: No Advance Directives: No Advance Directives Information Provided: Yes service: No Current occupational status: employed Physical Exam Vital Signs: Vital Signs: Last Vital Signs Temp 98.7 F 05/29/23 15:02 Pulse 65 05/29/23 17:43 Resp 16 05/29/23 15:02 BP 131/82 05/29/23 17:43 Pulse Ox 97 05/29/23 15:02 O2 Del Method Room Air 05/29/23 15:02 BMI result Body Mass Index 4.8 Const: General: healthy appearing, comfortable, no acute distress, alert and awake Nutritional Appearance: well nourished Orientation/consciousness: patient oriented x3 HEENT: Head: Yes normocephalic and Yes atraumatic Eyes: Eyelids: Yes eyelids normal Conjunctivae: conjunctivae normal Sclerae: sclerae normal Corneas: corneas normal Pupils: Equal, round and reactive pupils present EOM: EOMs intact bilaterally Neck: Neck: Yes full ROM Resp: Effort & Inspection: normal respiratory effort, able to speak in complete sentences and not labored Cardio: Rate: regular rate Rhythm: regular rhythm GI: Inspection: No distended Palpation (GI): Soft to palpation, not firm, nontender, no guarding and not rigid Skin: General skin exam: elasticity normal Neuro: General: patient oriented x3 Cranial nerves: Yes Equal, round and reactive pupils present and Yes Bilaterally intact EOM present Cognition (Neuro): normal cognition Course Course Course Narrative: This is an RME: Additional HPI, ROS, PE not included below will be deferred to primary provider. Patient is a 58-year-old male who presents emergency department referred from his primary care provider's office. Evidently he was there today to be evaluated for ongoing shortness of breath. Reports COVID-19 infection 2 years ago and persistent shortness of breath mainly on exertion since then. Over the past month he has noticed the shortness of breath to be worse, he is having episodes of dizziness associated with the shortness of breath. Over the past 2 weeks he has also noted that he gets short of breath while at rest. Evidently while in the PCP office today he became very diaphoretic when taking deep respirations which prompted her concern to refer him to the emergency department. He reports that she is concerned he may have a blood clot. He denies any personal history of DVT/PE/malignancy. He denies any recent URI symptoms. No known coagulation disorders. Plan: Labs, EKG, chest x-ray, viral panel Reevaluation(s) Reevaluation #1: Patient's workup largely unremarkable, I did discuss the CT findings of likely emphysema. The patient admits to be approximately 20 pack-year history of smoking. He will be referred to Cardiology for dyspnea on exertion Time: 20:14 Medications Administered Discontinued Medications Generic Name Dose Route Start Last Admin Trade Name Emily PRN Reason Stop Dose Admin Iohexol 65 ml 05/29/23 18:37 05/29/23 18:38 Iohexol 350 Mg/Ml 100 Ml Infus..Btl IV 05/29/23 18:38 65 ml ONCE ONE Administration Medical Decision Making Medical Decision Making [facility] Narrative: 58-year-old male presents for evaluation of increasing shortness of breath specifically with exertion. His vital signs are all within normal limits. He denies any chest pain, his EKG is normal sinus rhythm with a rate of [address] segment changes, no ectopy. Patient endorses leg swelling and shortness of breath. Will get an ultrasound of the lower extremities to rule out DVT, CTA to rule out PE however I feel this is less likely as he is not tachycardic or hypoxic. If workup is unremarkable, he can be referred to Cardiology to be evaluated for cardiomyopathy Differential Diagnosis Differential Diagnoses: The differential diagnosis associated with the presentation includes Chest pain ACS Orthostasis PE DVT Cardiomyopathy Lab Data [facility] Lab Attestation statement: I reviewed the patient's lab results. No leukocytosis or anemia. Normal platelet count. No electrolyte abnormalities. Troponin undetectable 05/29/23 11:28 05/29/23 11:28 Labs: Lab Results 05/29/23 Range/Units 11:28 WBC 6.9 (4.8-10.8) X10*3/uL RBC 4.80 (4.60-5.80) X10*6/uL Hgb 15.6 (14.0-18.0) g/dl Hct 43.9 (42.0-52.0) % MCV 91.5 (80.0-98.0) fL MCH 32.5 (27.0-33.0) pg MCHC 35.5 (31.0-36.0) g/dl RDW 12.6 (11.0-16.0) % Plt Count 211 (160-400) X10*3/uL MPV 9.7 (9.4-12.4) fL Immature Gran % (Auto) 0.4 (0.0-0.4) % Neut % (Auto) 55.0 (45-73) % Lymph % (Auto) 27.6 (20-40) % [place] % (Auto) 10.4 (2-11) % Eos % (Auto) 5.9 H (0-4) % Baso % (Auto) 0.7 (0-2) % Lymph # (Auto) 1.9 (1.2-4.9) X10*3/uL [place] # (Auto) 0.7 (0.1-1.2) X10*3/uL Eos # (Auto) 0.4 (0.0-0.4) X10*3/uL Baso # (Auto) 0.1 (0.0-0.2) X10*3/uL Abs Immat Gran (auto) 0.03 (0.00-0.03) X10*3/uL Absolute Neuts (auto) 3.8 (2.0-8.3) x10*3/uL Absolute Nucleated RBC 0.000 (0.0-0.012) X10*3/uL Nucleated RBC % (auto) 0.0 (0.0-0.2) /100WBC PT 11.8 (11.1-13.3) SEC INR 1.0 (0.9-1.1) D-Dimer High Sensitivty < 150 NG/ML Sodium 140 (135-145) mmol/L Potassium 3.7 (3.3-5.1) mmol/L Chloride 107 (96-108) mmol/L Carbon Dioxide 27 (22-29) mmol/L Anion Gap 10 L (12-20) BUN 17 H (9-16) mg/dL Creatinine 1.13 (0.5-1.4) mg/dL Estim Creat Clear Calc 18.5 Estimated GFR > 60 Random Glucose 97 (60-115) mg/dL Calcium 9.7 D (8.4-10.2) mg/dL Total Bilirubin 0.6 (0.0-1.0) mg/dL AST 14 (5-37) U/L ALT 31 (0-40) U/L Alkaline Phosphatase 73 (39-117) U/L Troponin I High Sens < 2.7 (<3.5-35.0) ng/L B-Natriuretic Peptide 12 (<100) pg/mL Total Protein 7.3 (6.5-8.0) g/dL Albumin 4.5 (3.5-5.0) g/dL Influenza Type A (PCR) NEGATIVE (Negative) Influenza Type B (PCR) NEGATIVE (Negative) RSV RNA Qual (PCR) NEGATIVE (Negative) SARS-CoV-2 RNA (RT-PCR) NEGATIVE (Negative) Independent Interpretation I performed an independent interpretation of an: EKG (See above) and Plain X-Ray (No focal infiltrates or effusions) Radiology Impression Discussion of test interpretation with radiology: I have reviewed the radiologist's reading. (No acute cardiopulmonary process) Discharge Plan Discharge Clinical Impression: Dyspnea on exertion Patient Disposition: Home, Self-Care Instructions: Dyspnea (ED) Additional Instructions: Your workup in the ER was reassuring. This includes your blood work, EKG, chest x-ray. Your CT angiography shows emphysema but no signs of blood clots. I do recommend that you follow-up with cardiology for your shortness of breath with exertion Call as soon as possible to schedule an appointment Return for new or worsening symptoms Prescriptions: No Action dexamethasone [Decadron] 6 mg tablet 6 mg PO DAILY Qty: 4 0RF Referrals: Lazaro Flores MD [Physician] - (Dyspnea on exertion)
--- NOTE | 2023-05-29 11:15 | ECG_ITS ---
Test Reason : SOB Blood Pressure : / mmHG Vent. Rate : 067 BPM Atrial Rate : 067 BPM P-R Int : 158 ms QRS Dur : 094 ms QT Int : 360 ms P-R-T Axes : 046 001 014 degrees QTc Int : 380 ms Normal sinus rhythm Normal ECG When compared with ECG of 06-MAR-2021 11:56, QT has shortened Referred By: Santa Shaffer Electronically Signed By:Lazaro Flores
[2023-05-29 11:33] LABS: MANUAL DIFF FLAG NO
[2023-05-29 11:38] LABS: Basophils Absolute Auto 0.1 X10*3/uL (0.0-0.2); Basophils Percent Auto 0.7 % (0-2); Eosinophils Absolute Auto 0.4 X10*3/uL (0.0-0.4); Eosinophils Percent Auto 5.9 % (0-4); Hematocrit 43.9 % (42.0-52.0); Hemoglobin 15.6 g/dl (14.0-18.0); Imm Gran Abs Auto 0.03 X10*3/uL (0.00-0.03); Imm Gran Pct Auto 0.4 % (0.0-0.4); Lymphocytes Absolute Auto 1.9 X10*3/uL (1.2-4.9); Lymphocytes Percent Auto 27.6 % (20-40); Mean Corpuscular HGB Conc 35.5 g/dl (31.0-36.0); Mean Corpuscular Hemoglobin 32.5 pg (27.0-33.0); Mean Corpuscular Volume 91.5 fL (80.0-98.0); Mean Platelet Volume 9.7 fL (9.4-12.4); Monocytes Absolute Auto 0.7 X10*3/uL (0.1-1.2); Monocytes Percent Auto 10.4 % (2-11); Neutrophils Absolute Auto 3.8 x10*3/uL (2.0-8.3); Platelet Count 211 X10*3/uL (160-400); Red Cell Distribution Width 12.6 % (11.0-16.0); White Blood Count 6.9 X10*3/uL (4.8-10.8)
[2023-05-29 11:47] LABS: Prothrombin Time 11.8 SEC (11.1-13.3)
[2023-05-29 11:50] LABS: Alanine Aminotransferase 31 U/L (0-40); Albumin Level 4.5 g/dL (3.5-5.0); Alkaline Phosphatase 73 U/L (39-117); Anion Gap 10 (12-20); Aspartate Amino Transferase 14 U/L (5-37); Bilirubin Total 0.6 mg/dL (0.0-1.0); Blood Urea Nitrogen 17 mg/dL (9-16); Calcium 9.7 mg/dL (8.4-10.2); Carbon Dioxide 27 mmol/L (22-29); Chloride 107 mmol/L (96-108); Creatinine Clr Calc Pharmacy 18.5; Estimated Glomerular Filt Rate > 60; Glucose Random 97 mg/dL (60-115); Potassium 3.7 mmol/L (3.3-5.1); Sodium 140 mmol/L (135-145); Total Protein 7.3 g/dL (6.5-8.0)
[2023-05-29 11:56] LABS: B Type Natriuretic Peptide 12 pg/mL (<100)
[2023-05-29 11:58] LABS: Troponin-I High Sensitivity < 2.7 ng/L (<3.5-35.0)
[2023-05-29 11:59] LABS: D Dimer High Sensitivity < 150 NG/ML
[2023-05-29 12:11] LABS: Influenza A PCR NEGATIVE (Negative); Influenza B PCR NEGATIVE (Negative); Resp Syncy Virus RNA Qual PCR NEGATIVE (Negative); SARS COV2 PCR INHOUSE NEGATIVE (Negative)
[2023-05-29 15:02] VITALS: BP 139/89; PULSE 64; RESP 16; TEMP 37.1; O2SAT 97
--- NOTE | 2023-05-29 16:19 | PC.NURSE ---
patient a&ox3, ekg monitor nsr 60s-70s, vss, pt has concerns that his o2 sat is fluctuating in the 90s on a home o2 sat device, pt currently speaking in full sentences, lungs clear throughout, call ramos within reach, will continue to monitor
[2023-05-29 17:42] VITALS: BP 115/74; BP 121/72; PULSE 62; PULSE 64
[2023-05-29 17:43] VITALS: BP 131/82; PULSE 65
[2023-05-29] MEDS: iohexoL 350 MG/ML 100 ML INFUS..BTL 65 ML IV (18:38)
--- NOTE | 2023-05-29 19:31 | PC.NURSE ---
Assumed care of the pt at 1900. Pt reporting no SOB and only pain is in his toe. O2 at 97% on RA. Pt pending dispo.
[2023-05-29 20:18] VITALS: BP 125/83; PULSE 67; RESP 16; TEMP 36.9; O2SAT 97
[2023-05-29 20:25] VITALS: BP 125/83; PULSE 67; RESP 16; TEMP 36.9; O2SAT 97
== END 2023-05-29 20:27 | disposition home or self-care (01) ==
PROVIDERS: Nurse Practitioner Family; Emergency Provider Internal Medicine; PCP Nurse Practitioner Family
DX: R06.02 Shortness of breath (principal); R42 Dizziness and giddiness; R60.0 Localized edema; Z11.52 Encounter for screening for COVID-19; Z20.822 Contact with and (suspected) exposure to COVID-19; Z79.899 Other long term (current) drug therapy
CPT/HCPCS: 0241U; 36415; 71046; 71275; 80053; 83880; 84484; 85025; 85379; 85610; 93005; 93970; 99284; Q9967

== ENCOUNTER → 2023-05-29 11:15 | Outpatient (BNV) | payer OTHER, SELFPAY | PROVIDERS: Emergency Provider Internal Medicine; PCP Nurse Practitioner Family; Visit Provider Internal Medicine Cardiovascular Disease | DX: R06.02 Shortness of breath (principal) | CPT/HCPCS: 93010 ==

== ENCOUNTER 2023-06-12 13:33 | Outpatient (AMB) | payer OTHER, SELFPAY ==
[2023-06-12 13:35] VITALS: BP 120/68; PULSE 68; BMI 28.2
--- NOTE | 2023-06-12 13:35 | MHC.OFFVIS ---
Intake Vital Signs 06/12/23 13:35 Height 6 ft 5 in Weight 238 lb 1.588 oz BMI 28.2 BP 120/68 Blood Pressure Location Lt brachial Position Sitting Pulse 68 Intake Visit Reasons: [facility] [place] ED fu req- Dyspnea on exertion (KM) Intake Note: pt still having sob Allergies No Known Allergies Allergy (Verified 03/06/21 11:19) HPI HPI Comments History of Present Illness Details Parker is a 58-year-old male who presents today for a follow-up after being in the emergency room for dyspnea on exertion on 05/29/23. He states since he had COVID back in March 2021 he has been having shortness of breath on exertion but it has gotten worse in the recent months. He reports becoming winded very easily, even with minimal exertion. He quit smoking about 12 years ago. He denies chest pains, alcohol use, cardiac history , or family cardiac history. He endorses some palpitations which feel like a fluttering in his chest lasting seconds. [facility] Medical History Palpitation Family History Mother Lupus Raynaud phenomenon Skin cancer Father Emphysema lung Social History Household Members: Spouse and Children Housing: House Do you presently have visiting nurse or other home services: No Patient Tobacco Use Status: Former Tobacco user Quit Date: quit early 40s service: No Current occupational status: employed Review of Systems Const Denies weakness ENT Denies dizziness Card Denies chest pain, Denies chest pain with activity, Denies syncope, Denies rapid heart rate, Denies pedal edema, Denies edema, Denies leg edema, Denies lightheadedness, Denies palpitations, Reports dyspnea, Denies dyspnea on exertion and Denies orthopnea Resp Denies cough, Reports dyspnea and Denies dyspnea on exertion GI Denies hematochezia and Denies change in stool character Musc Denies abnormal gait, Denies muscle cramps, Denies muscle weakness, Denies numbness, Denies radiating pain into limb and Denies tingling Neuro Denies abnormal gait, Denies dizziness, Denies syncope, Denies numbness, Denies tingling and Denies weakness Endo Denies palpitations Physical Exam Vital Signs: Last Vital Signs Pulse 68 06/12/23 13:35 BP 120/68 06/12/23 13:35 BMI result Body Mass Index 28.2 Const General: healthy appearing and no acute distress Orientation/consciousness: patient oriented x3 HEENT Head: Yes normal to inspection Eyes General: appearance normal, both eyes and all related structures Neck Neck: Yes normal visual inspection Chest Chest palpation & inspection: normal inspection of the chest Resp Effort & Inspection: normal respiratory effort Auscultation: clear to auscultation bilaterally Cardio Jugular venous distension: no JVD Palpation: normal PMI Rate: regular rate Rhythm: regular rhythm Heart sounds: S1 normal heart sound present, S2 normal heart sound present, no click, no gallops, no murmurs and no rubs GI Inspection: Yes normal to inspection Palpation (GI): Soft to palpation Skin General skin exam: no rashes or lesions noted Neuro General: patient oriented x3 Extrem General: Yes normal to inspection Psych Appearance: grossly normal Assessment & Plan Assessment & Plan (1) Dyspnea on exertion: Code(s): R06.09 - Other forms of dyspnea (2) Palpitation: Code(s): R00.2 - Palpitations Plan EKG during emergency room visit on 05/28 was normal sinus rhythm with rat eof 67 bpm. Hgb, Hct, electrolytes, troponin, an BNP unremarkable. Shortness of breath with activity even as minimal as talking. Reports has been happening since 03/2021 when he had COVID. Will get echocardiogram to assess for structural changes, a holter to assess for arrhythmias due to flutters in chest, and a stress test to assess for ischemia. Will have nuclear images due to shortness of breath on exertion. He may not be able to adequately exercise on the treadmill. Orders: Orders CA echo transthoracic complete 06/12/23 R06.09 - Other forms of dyspnea CA stress test 06/12/23 R06.09 - Other forms of dyspnea NM cardiolite stress test 06/12/23 R06.09 - Other forms of dyspnea ECG 3 day holter monitor 06/12/23 R00.2 - Palpitations Medications: Discontinued dexamethasone (Decadron) Discontinued Reason: Patient no longer taking 6 mg PO DAILY 4 tabs 0RF Coding Level of Care Code New Pt Level 3 (20663) Diagnoses Dyspnea on exertion R06.09 Palpitation R00.2
== END 2023-06-12 14:21 | disposition home or self-care (01) ==
PROVIDERS: PCP Nurse Practitioner Family; Visit Provider Nurse Practitioner
DX: R06.09 Other forms of dyspnea (principal); R00.2 Palpitations
CPT/HCPCS: 99203

== ENCOUNTER → 2023-06-12 13:33 | Outpatient (BNVA) | payer OTHER, SELFPAY | PROVIDERS: PCP Nurse Practitioner Family; Visit Provider Nurse Practitioner | DX: R06.09 Other forms of dyspnea (principal); R00.2 Palpitations ==

== ENCOUNTER → 2023-07-30 09:18 | Outpatient (REF) | payer OTHER, SELFPAY ==
--- NOTE | ~2023-07-30 | NM_ITS ---
Exercise Myocardial perfusion study Indication: Shortness of breath to evaluate for myocardial ischemia Technique: The patient was brought in for an exercise perfusion study on 07/30/2023. Patient performed exercise as per Ronald protocol and was injected 35 mCi of sestamibi was given intravenously one target HR was achieved. Images were obtained using the SPECT gamma camera interlaced with the gating device. Images were obtained in supine position. Resting perfusion study was performed on 08/03/2023. Patient was administered 35 mCi of sestamibi intravenously at rest. Images were then obtained in supine position. Images obtained with and without CT attenuation. Total DLP 111 mGy-cm. Images were processed with the software and compared side to side in short axis, horizontal long axis and vertical long axis views. Findings: The stress perfusion study showed non attenuated images show moderate to severely reduced uptake in the inferior as well as moderately reduced uptake in the inferoseptal wall of the LV myocardium. Attenuation corrected images show mildly reduced uptake in the inferior and moderately reduced uptake in the inferoseptal wall of the LV myocardium.. The gated study shows normal LV systolic function with calculated LVEF of 74%. LV cavity is mildly dilated in size. The gated study shows normal systolic wall thickening and contraction of all segments. There is no transient ischemic dilation. Resting study shows both attenuated as well as non attenuated images show improved uptake in the inferior inferoseptal wall of the LV myocardium. Gating at rest reveals normal systolic wall motion with ejection fraction at 60%. The findings are consistent with reversible defect of the inferior inferoseptal wall suggestive of ischemia in RCA territory. NM/NM cardiolite stress test Impression: 1. Inferior and inferoseptal ischemia in RCA territory 2. Gated LVEF is 74% 3. Transient ischemic dilatation not present Stress EKG is equivocal for ischemia
--- NOTE | 2023-07-30 09:21 | CA_ITS ---
Acquisition Time: 2023-07-30 09:52:05 Total Exercise Time: 00:04:31 Test Indications: Dyspnea Medications: SEE EMAR Protocol: HANS Max HR: 155 BPM 95% of Pred: 163 BPM Max BP: 166/084 mmHG Max Work Load: 6.4 METS Exercise stress test with exercise 4 min 31 sec of Hans protocol, achieving 95% MPHR, with moderate shortness of breath and need to stop, no chest discomfort, without arrythmia, with normotensive response to exercise, without EKG changes meeting criteria for ischemia. In recovery his shortness of breath resolved. Nuclear images pending. Test reviewed with Dr Lowery. Referred By: Swathi Sherman Overread By: JOSEPH NIETO
--- NOTE | 2023-07-30 09:21 | CA_ITS ---
Transthoracic Echocardiogram Patient (Last, First, Middle): Parker Caruso R Gender: Male Date of : 1965 Age: 58 Procedure Date: 07/30/2023 Procedure Type: Transthoracic Echocardiogram Location: OP Height: 195.58 cm Weight: 104.33 kg BSA: 2.37 m2 Heart Rate: bpm BP: 120 / 68 mmHg Bpo Specialist: CECILIA Referring MD: Swathi Sherman ACCESSIBILITY LIFT TECHNICIAN Symptoms: R06.09 - Other forms of dyspnea Study Quality: Fair ECG Rhythm: Sinus Conclusions: - The left ventricular systolic function is normal. The calculated ejection fraction is 60% by biplane method. - No obvious valvular pathology seen on this study. Findings Left Ventricle Normal left ventricular cavity size. There is normal left ventricular wall thickness. The left ventricular systolic function is normal. The calculated ejection fraction is 60% by biplane method. There is no evidence of regional wall motion abnormalities. Diastolic function is normal for age. Right Ventricle Normal right ventricular cavity size and systolic function. Atria Both atria are normal in size. Aortic Valve There is a normal trileaflet aortic valve. There is mild calcification of the aortic valve. There is no aortic valve stenosis. There is no aortic valve regurgitation. Mitral Valve The mitral valve appears normal. There is no mitral valve regurgitation. There is no mitral valve stenosis. Pulmonic Valve The pulmonic valve is likely normal. Tricuspid Valve Normal tricuspid valve structure. There is trace tricuspid valve regurgitation. There is no evidence of pulmonary hypertension. Great Vessels The asc aorta is normal in size. Venous The inferior vena cava is normal in size and collapses greater than 50% with inspiration. Pericardium/Pleural There is no evidence of pericardial effusion. Prior Study Comparison No prior study available for comparison. Recommendations, Care & Conclusions No obvious valvular pathology seen on this study. Measurements 2D Linear Measurements IVSd: 0.96 0.6-0.9/0.6-1.0 cm LVIDd: 4.82 3.9-5.3/4.2-5.9 cm LVIDd Index: 2.03 2.4-3.2/2.2-3.1 cm/m2 LVIDs: 3.08 2.0-3.6 cm LVPWd: 1.05 0.7-1.1 cm LA Diam: 3.40 2.7-3.8/3.0-4.0 cm LAIDs Index: 1.43 1.5-2.3 cm/m2 LV Mass: 214.61 67-162/88-224 g LV Mass Index: 90.55 43-95/49-115 g/m2 LVOT Diam: 2.30 3.0+(-)1.3 cm 2D Systolic Function EF 4C: 59.90 >55% EF 2C: 58.90 >55% EF BiP: 59.70 >55% Mitral Valve MV Pk E: 0.57 MV PK A: 0.71 MV Decel Time: 193.00 E/A: 0.80 E'Lateral: 9.68 E'Medial: 8.49 E/E' Med: 6.70 E/E' Lat: 5.80 PHT: 57.00 MVA PHT: 3.86 Decel Carson: 2.93 Aortic Valve AoV Pk Branden: 1.36 AoV Mn Branden: 0.98 AoV VTI: 0.24 AoV Pk Grad: 7.00 Aov Mn Grad: 4.00 ASHLEE Cont.VTI: 3.16 LVOT LVOT Pk Branden: 0.90 LVOT Mn Branden: 0.63 LVOT VTI: 0.18 LVOT Pk Grad: 3.00 LVOT Mn Grad: 2.00 LVOT Diam: 2.30 LVOT Area: 4.15 Diastolic Function MV Pk E: 0.57 MV Pk A: 0.71 E/A: 0.80 E'Medial: 8.49 E/E' Med: 6.70 E' Laterial: 9.68 E/E' Lat: 5.80 Right Ventricle TAPSE (mm): 23.80 TVS' Branden: 12.30 Tricuspid Valve TR Pk Branden: 1.83 TR Pk Grad: 13.00 Great Vessels Aorta Sinus of Valsalva: 4.30 2.0-3.5 cm Ao Asc: 3.80 2.1-3.4 cm Ao Arch: 2.80 Updated in Other Vendor System with Status of Final Nathaniel Lowery MD electronically signed on 07/31/2023 3:49:35 PM with status of Final
--- NOTE | 2023-07-30 09:21 | HM_ITS ---
Conclusion: 1. Patient was monitored for total period of 2 days and 23 hours 2. Baseline was normal sinus rhythm with average heart of 73 beats per minute 3. No significant pauses noted 4.One 8 beat episode of nonsustained VT noted at 182 beats per minute 5. No patient reported events MTDD
== END ==
LOC: HO.CARD 09:18
PROVIDERS: PCP Nurse Practitioner Family; Visit Provider Nurse Practitioner
DX: R06.09 Other forms of dyspnea (principal); R00.2 Palpitations
CPT/HCPCS: 78452; 93017; 93242; 93306; A9500

== ENCOUNTER → 2023-07-30 09:21 | Outpatient (BNV) | payer OTHER, SELFPAY | PROVIDERS: PCP Nurse Practitioner Family; Visit Provider Nurse Practitioner Family | DX: R00.1 Bradycardia, unspecified (principal) | CPT/HCPCS: 78452; 93016; 93018; 93244; 93350 ==

== ENCOUNTER 2023-08-04 14:07 | Outpatient (AMB) | payer OTHER, SELFPAY ==
--- NOTE | 2023-08-04 14:33 | MHC.OFFVIS ---
Vital Signs 08/04/23 14:34 Height 6 ft 5 in Weight 238 lb 1.588 oz BMI 28.2 BP 118/68 Blood Pressure Location Lt brachial Position Sitting Pulse 78 Pulse Source Pulse Oximeter Intake Visit Reasons: 8wk f/up echo/holter/mibi Allergies No Known Allergies Allergy (Verified 03/06/21 11:19) Medication List - Last Reconciled 08/04/23 by Swathi Sherman NP No Known Home Meds HPI Comments Details: Parker is a 58-year-old male who presents today for a follow-up. He states since he had COVID back in March 2021 he has been having shortness of breath on exertion but it has gotten worse in the recent months. He reports becoming winded very easily, even with minimal exertion. He quit smoking about 12 years ago. He denies chest pains, alcohol use, cardiac history , or family cardiac history. He endorses some palpitations which feel like a fluttering in his chest lasting seconds. [facility] Medical History Palpitation Family History Mother Lupus Raynaud phenomenon Skin cancer Father Emphysema lung Social History Household Members: Spouse and Children Housing: House Do you presently have visiting nurse or other home services: No Patient Tobacco Use Status: Former Tobacco user service: No Current occupational status: employed Review of Systems Const Denies weakness ENT Denies dizziness Card Denies chest pain, Denies chest pain with activity, Denies syncope, Denies rapid heart rate, Denies pedal edema, Denies edema, Denies leg edema, Denies lightheadedness, Denies palpitations, Denies dyspnea, Denies dyspnea on exertion and Denies orthopnea Resp Denies cough, Denies dyspnea and Denies dyspnea on exertion GI Denies hematochezia and Denies change in stool character Musc Denies abnormal gait, Denies muscle cramps, Denies muscle weakness, Denies numbness, Denies radiating pain into limb and Denies tingling Neuro Denies abnormal gait, Denies dizziness, Denies syncope, Denies numbness, Denies tingling and Denies weakness Endo Denies palpitations Physical Exam Vital Signs: Last Vital Signs Pulse 78 08/04/23 14:34 BP 118/68 08/04/23 14:34 BMI result Body Mass Index 28.2 Assessment & Plan Assessment & Plan (1) Dyspnea on exertion: Code(s): R06.09 - Other forms of dyspnea Category: Medical (2) Palpitation: Code(s): R00.2 - Palpitations Category: Medical Plan Reports has been happening since 03/2021 when he had COVID. Still short of breath with minimal exertion and some palpitations in and off which he reports is like a skipped beat. Testing results are not available at this time. Will call with the results. Coding Level of Care Code Est Pt Level 3 (35713) Diagnoses Dyspnea on exertion R06.09 Palpitation R00.2
[2023-08-04 14:34] VITALS: BP 118/68; PULSE 78; BMI 28.2
== END 2023-08-04 15:05 | disposition home or self-care (01) ==
PROVIDERS: PCP Nurse Practitioner Family; Visit Provider Nurse Practitioner
DX: R06.09 Other forms of dyspnea (principal); R00.2 Palpitations
CPT/HCPCS: 99213

== ENCOUNTER → 2023-08-04 14:07 | Outpatient (BNVA) | payer OTHER, SELFPAY | PROVIDERS: PCP Nurse Practitioner Family; Visit Provider Nurse Practitioner | DX: R06.09 Other forms of dyspnea (principal); R00.2 Palpitations ==